=== PATIENT | female | born 1945 | race Caucasian/White ===

== ENCOUNTER 2025-03-19 08:23 | Outpatient (AMB) | payer MEDICARE, SELFPAY ==
--- NOTE | 2025-03-19 08:24 | MHC.OFFVIS ---
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 Ultrasound done on 02/25/2025 showed an endometrial stripe measuring 12 mm no other abnormalities No history of vaginal bleeding Last Pap smear was many years ago negative no history of abnormal Pap smears [facility] Medical History Lymphadenoma Melanoma Surgical History History of appendectomy Social History Household Members: Children Housing: House Alcohol intake: current Alcohol intake frequency: holidays/special occasions only Patient Tobacco Use Status: Current everyday Tobacco user Patient : No Current occupational status: retired Female Reproductive History Menstrual Total pregnancies: 2 Full term: 1 Date of Mammogram: 06/10/24 Review of Systems Const All systems reviewed & are unremarkable except as noted in HPI and below Physical Exam Vital Signs: BMI result Body Mass Index 26.8 General: Yes no CVA tenderness External Female Exam: normal external appearance and normal appearance of the urethra Speculum Exam - Vagina: normal appearance of the vagina, normal palpation, no lesions and no masses Speculum Exam - Cervix: normal appearance of the cervix, normal palpation, no lesions, no masses and nontender Bimanual exam- vagina & uterus: normal bimanual exam, normal palpation, uterine size normal, normal palpation, uterine shape normal, No Cervical tenderness present and non-tender Bimanual Exam- Adnexa, other: normal adnexae Back/Spine/Pelvis Back: no CVA tenderness Office Procedures Endometrial Biopsy Details: The patient was counseled regarding the indication and benefits of endometrial sampling to rule out endometrial pathology including not limited to endometrial hyperplasia or endometrial cancer and others; The alternatives (Either do nothing vs. hysteroscopy D&C) & the risks were discussed with the patient including but not limited: pain, uterine perforation, bleeding, infection, possible injury to bladder, bowel, ureter, possible need for blood transfusion with all its possible risks. The patient verbalized understanding all questions answered and signed consent. The patient was placed into the dorsal lithotomy position; a speculum was inserted in the vagina. Using aseptic technique for the procedure, the cervix was cleansed with Betadine. The anterior lip of the cervix was grasped with a single tooth tenaculum. The uterus was sounded to 7 cm with a 4 mm Pipelle was used. The patient not tolerate the procedure well therefore the procedure was aborted. Minimal Tissues samples were obtained and placed in formalin, in a patient labeled container and sent to the pathology department. At the end of the procedure, there was minimal bleeding noted The patient was discharged in good condition with the following instructions: Nothing in the vagina until the bleeding stops. No sex until the bleeding stops, to call if any of the following occurs: fever (>100.4), flu-like symptoms, abdominal pain, heavy bleeding, four smelling vaginal discharge. The patient was instructed to schedule a Follow up appointment in 2 weeks to discuss pathology results of the biopsy and treatment options. This note was generated with a voice recognition program. Some errors may have been overlooked during the review of this note. Sometimes these errors may affect the content or meaning of a given sentence. 45547-Gsljfjspken Biopsy Assessment & Plan Assessment & Plan (1) Endometrial thickening on ultrasound: Code(s): R93.89 - Abnormal findings on diagnostic imaging of other specified body structures Category: Medical Plan: Discussed with the patient endometrial thickness above 4 mm in menopause , the differential diagnosis of a thickened endometrium includes but not limited to endometrial polyp, hyperplasia or carcinoma. Explained to the patient that endometrial each thickness is less predictive of endometrial neoplasia in asymptomatic patients, i.e. those without postmenopausal uterine bleeding. The sensitivity and specificity for detecting endometrial carcinoma at an endometrial thickness of >= 5mm was 83 and 72 percent, respectively; this is lower than in patients with bleeding. Studies have shown that postmenopausal patients without uterine bleeding who had an endometrial thickness >11 mm had an endometrial carcinoma risk of 6.7 percent; this risk is similar to postmenopausal patients with bleeding and an endometrial thickness >5 mm. Recommended endometrial sampling to rule endometrial pathology via either office endometrial biopsy or diagnostic hysteroscopy/D&C with possible polypectomy/myomectomy. All pros and cons, risks and benefits of each approach were discussed with the patient, the patient decided to proceed with endometrial biopsy. EMB done, see procedure. All questions answered, the patient verbalized Orders: Orders AMB Endometrial Biopsy Today R93.89 - Abnormal findings on diagnostic imaging of other specified body structures Coding Level of Care Code New Pt Level 3 (22386) Procedure Only Diagnoses Endometrial thickening on ultrasound R93.89 CPT Codes Endometrial Biopsy - CPT: 66839-Oxmobtomvmt Biopsy ([id number])
[2025-03-19 08:35] VITALS: BMI 26.8
== END 2025-03-19 09:13 | disposition home or self-care (01) ==
LOC: HO.HWS 08:23
PROVIDERS: PCP Nurse Practitioner Primary Care; Visit Provider Obstetrics & Gynecology
DX: R93.89 Abnormal findings on diagnostic imaging of other specified body structures (principal)
CPT/HCPCS: 58100; 99203

== ENCOUNTER 2025-03-19 08:23 | Outpatient (REF) | payer MEDICARE, SELFPAY ==
--- OUTSIDE RECORDS SUMMARY | 2025-03-19 11:03 | XMS_ITS ---
Author Name [facility] Organization Unknown Care Team Organization Name Specialty Phone Email Start Date End [facility] 03/18/2025
--- OUTSIDE RECORDS SUMMARY | 2025-03-19 11:03 | XMS_ITS | Encounter Summary ---
Author Organization [facility] Address [address] [place] [address] Care Team Providers Care Director Staffing Name Role Phone Kirstin Mcgarry NP Primary Care Provider [phone] Reason for Visit * Reason Onset Date Comments results 03/11/2025 Encounter Details Date Type Department Care Team (Late st Contact Info) Description 03/11/2025 Telephone Internal Medicine - [place] [address] [facility] [place] [phone] Kirstin Mcgarry NP [address] [place] [address] results Social History Tobacco Use Types Packs/Day Years Used Date Smoking Tobacco: Every Day Cigarettes Smokeless Tobacco: Never Alcohol Use Standard Drinks/Week Comments Yes 2 (1 standard drink = 0.6 oz pur e alcohol) Comments No Sex and Gender Information Value Date Recorded Sex Assigned at Not on file Legal Sex Female 12:42 AM EST Gender Identity Not on file Sexual Orientation Not on file documented as of this encounter Progress Notes * Ember Waldron MA - 03/11/2025 4:58 PM EDT Pt was called and given results of tests and told she is being referred to GI for further evaluation. * Tonie Barkley - 03/11/2025 4:35 PM EDT Patient returning call for MRI results. Patient is home now., Please call back at: [phone] documented in this encounter Plan of Treatment Upcoming Encounters Date Type Department Care Team (Late st Contact Info) Description 05/13/2025 8:45 AM EDT Office Visit Internal Medicine - [facility] [address] [place] [address] Kirstin Mcgarry NP [address] [place] [address] 06/16/2025 9:00 AM EST Consult Gastroenterology - [place] [address] [place] [id number] Ramy Friend MD [address] [facility] [address] [place] [address] documented as of this encounter Visit Diagnoses Not on filedocumented in this encounter Additional Health Concerns Assessment Noted Time PHQ-9 Depression Total Score: 0 11/12/19 25 8:55 AM EDT A fall risk assessment has been complete d for the patient 11/11/2024 8:55 AM EDT documented as of this encounter Care Teams Director Staffing Relationship Specialty Start Date End Date Kirstin Mcgarry NP [address] [place] [address] PCP - General 07/27/22 documented as of this encounter
== END 2025-03-19 08:24 | disposition home or self-care (01) ==
LOC: HO.LNP 08:23
PROVIDERS: PCP Nurse Practitioner Primary Care; Visit Provider Obstetrics & Gynecology
DX: R93.89 Abnormal findings on diagnostic imaging of other specified body structures (principal)
CPT/HCPCS: 58100; 88305; 99202

== ENCOUNTER 2025-03-26 10:12 | Outpatient (AMB) | payer MEDICARE, SELFPAY ==
--- NOTE | 2025-03-26 10:38 | MHC.OFFVIS ---
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 The patient has no complaints, no vaginal bleeding, no feverishness chills or abdominal pain. The endometrial biopsy pathology report showed the following: Endometrium, biopsy: Abundant mucin and fragments of benign endocervical glands and squamous mucosa; no endometrial tissue seen (see comment). COMMENT: The specimen is inadequate for evaluation of the endometrium [facility] Medical History Lymphadenoma Melanoma Surgical History History of appendectomy Social History Household Members: Children Housing: House Alcohol intake: current Alcohol intake frequency: holidays/special occasions only Patient Tobacco Use Status: Current everyday Tobacco user Current occupational status: retired Female Reproductive History Menstrual Date of last menstrual period: 05/27/20 Total pregnancies: 2 Full term: 2 Review of Systems Const All systems reviewed & are unremarkable except as noted in HPI and below Reports as per HPI and Reports no additional complaints Card Reports as per HPI and Reports no additional complaints Resp Reports as per HPI and Reports no additional complaints GI Reports no additional complaints Reports no additional complaints Physical Exam Const General: cooperative, healthy appearing and comfortable Resp Effort & Inspection: normal respiratory effort Auscultation: clear to auscultation bilaterally Percussion: percussion normal Cardio Palpation: normal PMI Rate: regular rate Rhythm: regular rhythm Heart sounds: no murmurs and no rubs Peripheral pulses: Peripheral pulses 2+ throughout GI Inspection: Yes normal to inspection Palpation (GI): Soft to palpation, nontender, no guarding, not rigid and No hepatosplenomegaly present Percussion: Yes normal to percussion Auscultation: normal bowel sounds Rectal Exam - Female: deferred Assessment & Plan Assessment & Plan (1) Endometrial thickening on ultrasound: Code(s): R93.89 - Abnormal findings on diagnostic imaging of other specified body structures Category: Medical Plan: Discussed with the patient the results of the endometrial biopsy pathology, no endometrial tissues. Recommended to the patient that the next step is an endometrial sampling via hysteroscopy D&C possible polypectomy versus endometrial biopsy to r/o endometrial pathology including hyperplasia or cancer. All the pros and cons risks and benefits of each approach were discussed with the patient, endometrial biopsy being less invasive, office procedure with less sensitivity and inability diagnose a polyp and removal versus hysteroscopy done under anesthesia more invasive more sensitive to endometrial cancer and possibility of diagnosing and endometrial polyp with the possibility of polypectomy. All questions were answered pt verbalized understanding and decided to proceed with hysteroscopy D&C possible polypectomy/myomectomy. Discussed with the patient the procedure , all benefits and risks including but not limited to inability to complete the procedure , insufficient endometrial tissue for a complete evaluation of the endometrial cavity , bleeding, infection, possible need for blood transfusion with all its risk ( HIV,syphilis, Hepatitis, anaphylaxis shock, others..), injury to bladder, rectum, possible need for laparoscopy/laparotomy or hysterectomy. The patient verbalized understanding and signed the consent. Instructions given the patient to stay NPO after midnight the day prior to the procedure and to take only the specific medication (s) discussed the morning of the surgical procedure and to schedule a 2 week postoperative appointment Coding Level of Care Code Est Pt Level 3 (83444) Diagnoses Endometrial thickening on ultrasound R93.89
--- OUTSIDE RECORDS SUMMARY | 2025-03-26 11:29 | XMS_ITS | Clinical Summary ---
Author Organization [facility] Address [address] [place] [address] Phone Care Team Providers Care Finish Machine Tender Name Role Phone Kirstin Mcgarry NP Primary Care Provider [phone] Allergies No known active allergies Medications cholecalciferol (VITAMIN D-3) 50 mcg (2,000 unit) tablet Take 1 Tablet by mouth daily. Active aspirin 81 mg EC tablet Take 1 tablet (81 mg total) by mouth 1 (one) time each day. Active risedronate (ACTONEL) 35 mg tablet TAKE ONE TABLET BY MOUTH EVERY 7 DAYS DIRECTED 12 tablet 1 11/21/2024 Active losartan (COZAAR) 25 mg tablet TAKE ONE TABLET BY MOUTH EVERY DAY 90 tablet 1 12/23/2024 Active rosuvastatin (CRESTOR) 10 mg tablet TAKE ONE TABLET BY MOUTH EVERY DAY 90 tablet 1 02/12/2025 Active Active Problems Problem Noted Date Diagnosed Date Metastatic melanoma ([facility]/HCC V24, [facility]/HCC V28) 0 11/11/2024 Tobacco use disorder 02/06/2024 Assessment & Plan (11/11/2024 10:18 AM EDT): Tobacco use Patient is aware of the effects of tobacco and has been counseled in regards to tobacco cessation however patient is unwilling to stop smoking at this time -patient was counseled for 3-10 minutes on smoking cessation and is not interested in quitting at this time. Mixed hyperlipidemia 10/30/2022 Assessment & Plan (11/11/2024 10:18 AM EDT): HLD: controlled on statin. Continue current dose. Reviewed SE associated with statin use. Low cholesterol diet advised as well as exercise and optimal weight control. Update lipid panel today. Primary hypertension 10/30/2022 Assessment & Plan (11/11/2024 10:18 AM EDT): HTN: controlled. Continue current meds. Reviewed lifestyle mods to help manage HTN Including low sodium diet and exercise and optimal weight control. Check BMP today. Age-related osteoporosis wit hout current pathological fracture 10/30/2022 Assessment & Plan (11/11/2024 10:18 AM EDT): OP: Is on risedronate for treatment. Bone density not yet due. No reported adverse effects. Encounters Date Type Department Care Team Description 03/11/2025 Telephone Internal Medicine - [address] [phone] Kirstin Mcgarry NP 02/25/2025 12:23 PM EDT - 02/25/2025 11:59 PM EDT Hospital Encounter Radiology Department - [address] [phone] Thickened endometrium; Hydronephrosis with ureteropelvic junction (UPJ) obstruction Discharge Disposition: Home or Self Care 02/25/2025 Telephone Internal Medicine - [address] [phone] Kirstin Mcgarry NP 02/18/2025 Telephone Internal Medicine - [address] [phone] Kirstin Mcgarry NP from Last 3 Months Immunizations Name Administration Dates Next Due Influenza Quadravalent, MDCK , 0.5ml, preservative free (Flucelvax) 6mo and older 05/01/2023 Influenza trivalent, 0.5mL (Fluad) 65yo and olde r 05/13/2024 Pneumococcal conjugate 20 va lent (Prevnar 20, PCV 20) 2mo and older 10/30/2022 Surgical History Surgery Date Site/Laterality Comments APPENDECTOMY 2006 PROCEDURE: HISTORICAL APPENDECTOMY OTHER SURGICAL HISTORY 1979 PROCEDURE: [place] SPINE DEVICE IMPLANT SURGERY BREAST BIOPSY US LT 07/30/2013 - 07/29/2014 Left BREAST CYST ASPIRATION 07/30/2020 - 07/29/2021 Right Medical History Medical History Date Comments Osteopenia DX:Osteopenia Mixed hyperlipidemia DX:Mixed hy perlipidemia Essential (primary) hypertension DX:Essential (primary) hypertension Malignant melanoma of skin ( CMS/HCC V24, CMS/HCC V28) DX:Malignant melanoma of ski n (HCC) Family History Medical History Relation Name Comments Other: Other Brother AAA Heart attack Father Hyperlipidemia Father Hypertension Father No Known Problems Mother Diabetes Paternal Grandmother Thyroid disease Sister x2 No Known Problems Son Relation Name Status Comments Brother Father Mother Paternal Grandmother Sister x2 Alive Son Alive Social History Tobacco Use Types Packs/Day Years [...] on file Sexual Orientation Not on file Obstetrics History Para Term AB IAB SAB Ectopic Multiple Livin g Live Births 1 Last Filed Vital Signs Vital Sign Reading Time Taken Comments Blood Pressure 128/78 11/11/2024 8:49 AM EDT A Pulse 76 11/11/2024 8:49 AM EDT Temperature - - Respiratory Rate - - Oxygen Saturation - - Inhaled Oxygen Concentration - - Weight 80 kg (176 lb 6.4 oz) 11/11/2024 8:49 AM EDT Height 165.1 cm (5' 5 ) 11/11/2024 8:49 AM EDT Body Mass Index 29.35 11/11/2024 8:49 AM EDT Plan of Treatment Upcoming Encounters Date Type Department Care Team (Late st Contact Info) Description 05/13/2025 8:45 AM EDT [facility] [address] [place] [address] Kirstin Mcgarry, ZAC [address] [place] [address] 07/01/2025 9:00 AM EST Consult Gastroenterology - [place] 175 [facility] 175 [facility] [address] [place] [address] Ramy Friend MD [address] [place] [phone] Health Maintenance Due Date Last Done Comments DTaP,Tdap,and Td Vaccines (1 - Tdap) 1964 Zoster Vaccines (1 of 2) 1964 Social Influencers of Health Screening 07/02/2022 COVID-19 Vaccine (4 - 2023-2 5 season) 2024 06/28/2021, 09/30/2020, 09/09/2020 Influenza Vaccine (#1) 2025 , 05/01/2023 Falls Risk Assessment 11/11/2025 11/11/2024 , 10/31/2023 Hypertension/CHF/CAD Annual BMP Blood Test 11/11/2025 11/11/2024, 05/13/2024, 05/13/2024 Medicare Annual Wellness Visit 11/11/2025 11/11/2024 Cholesterol Screening (Lipid Panel) 11/11/2029 11/11/2024, 05/13/2024, 05/13/2024 Osteoporosis Screening (Bone Density Screening) 07/10/2032 07/10/2022, 07/01/2020, 04/05/2018 Pneumococcal Vaccine: 50+ Years Completed 10/30/2022 RSV Immunization Adult Patients Completed 2024 Depression Screening Completed 11/11/2024, 10/31/2023 HIB Vaccines Aged Out No longer eligi ble based on patient's age to complete this topic HPV Vaccines Aged Out No longer eligi ble based on patient's age to complete this topic Hepatitis A Vaccines Aged Out No long er eligible based on patient's age to complete this topic Hepatitis B Vaccines Aged Out No long er eligible based on patient's age to complete this topic Hepatitis C Screening Discontinued IPV Vaccines Aged Out No longer eligi ble based on patient's age to complete this topic Lung Cancer Screening (Low Dose CT) Discontinued MMR Vaccines Aged Out No longer eligi ble based on patient's age to complete this topic Meningococcal ACWY Vaccine Aged Out N o longer eligible based on patient's age to complete this topic Meningococcal B Vaccine Aged Out No l onger eligible based on patient's age to complete this topic RSV Immunization Patients Under 20 months Aged Out No longer eligible based on patient's age to complete this topic Varicella Vaccines Aged Out No longer eligible based on patient's age to complete this topic Procedures Procedure Name Priority Date/Time Associated Diagnosis Comments EXTERNAL XRAY REPORT 03/11/2025 US PELVIS NON OB COMPLETE Routine 02/25/2025 12:56 PM EDT Thickened endometrium Hydronephrosis with ureteropelvic junction (UPJ) obstruction CT ABDOMEN PELVIS WO AND W CONTRAST Routine 02/12/2025 1:43 PM EDT COMPREHENSIVE METABOLIC PANEL Routine 11/11/2024 9:55 AM EDT Screening for metabolic disorder LIPID PANEL WITH REFLEX TO DIRECT LDL Routine 11/11/2024 9:55 AM EDT Screening for metabolic disorder Encounter for lipid screening for cardiovascular disease DEPRESSION SCREENING Routine 10/31/2023 FALLS RISK ASSESSMENT Routine 10/31/2023 [facility] DEXA AXIAL SKELETON Routine 07/10/2022 9:33 AM EST Age-related osteoporosis without current pathological fracture from Last 3 Months or Most Recently Relevant to Health Maintenance Results * External Xray Report (03/11/2025) Anatomical Region Laterality Modality Radiographic Nimco ging us Provider [facility] IMG XR PROCEDURES Final Result * US Pelvis Non OB Complete (02/25/2025 12:56 PM EDT) Anatomical Region Laterality Modality Body, Pelvis Ultrasound 02/25/2025 1:02 PM EDT Impressions 02/25/2025 1:41 PM EDT Abnormally thickened endometrium, measuring 1.2 cm in thickness. Neither ovary is visualized. -------- FINAL REPORT -------- Dictated By: Marcella Strange Dictated Date: 02/25/2025 13:02 ET Assigned Physician: Marcella Strange Reviewed and Electronically Signed By: Marcella Strange Signed Date: 02/25/2025 13:41 ET Workstation ID: [id number] Transcribed By: Self Edit Transcribed Date: 02/25/2025 13:02 ET Narrative 02/25/2025 1:41 PM EDT US PELVIS NON OB COMPLETE PELVIC ULTRASOUND History: Endometrial thickening. Hydronephrosis. Procedure: Real-time and color Doppler pelvic ultrasound. The patient declined the transvaginal exam. Comparison: None. FINDINGS: The uterus measures 6.72 x 2.71 x 2.4 cm for a volume of 32.4 cc. Endometrial stripe measures 1.2 cm. No evidence of uterine or adnexal mass seen. Transvaginal sonographic examination was performed for better evaluation of the adnexa. Neither ovary is visualized. No free fluid was demonstrated. Procedure Note Marcella Strange MD - 02/25/2025 US PELVIS NON OB COMPLETE PELVIC ULTRASOUND History: Endometrial thickening. Hydronephrosis. Procedure: Real-time and color Doppler pelvic ultrasound. The patientdeclined the transvaginal exam. Comparison: None. FINDINGS: The uterus measures 6.72 x 2.71 x 2.4 cm for a volume of 32.4cc. Endometrial stripe measures 1.2 cm. No evidence of uterine or adnexal mass seen. Transvaginal sonographic examination was performed for better evaluationof the adnexa. Neither ovary is visualized. No free fluid was demonstrated. IMPRESSION: Abnormally thickened endometrium, measuring 1.2 cm in thickness. Neither ovary is visualized. -------- FINAL REPORT -------- Dictated By: Marcella Strange Dictated Date: 02/25/2025 13:02 ET Assigned Physician: Marcella Strange Reviewed and Electronically Signed By: Marcella Strange Signed Date: 02/25/2025 13:41 ET Workstation ID: [id number] Transcribed By: Self Edit Transcribed Date: 02/25/2025 13:02 ET us Kirstin Mcgarry NP IMG US PROCEDURES Final Result * CT Abdomen Pelvis wo and w Contrast (02/12/2025 1:43 PM EDT) Anatomical Region Laterality Modality Body Computed Tomogra phy Marisabel Amezcua DISH ROOM WORKER IMG CT PROCEDURES Final Resu lt * Lipid panel with reflex to direct LDL (11/11/2024 9:55 AM EDT) Cholesterol 167 0 - 200 mg/dL LAB CHEMISTRY METHOD 11/11/2024 1:[address] [facility] Triglycerides 107 0 - 150 mg/dL LAB CHEMISTRY METHOD 11/11/2024 1:[address] [facility] HDL 57 >=40 mg/dL LAB CHEMISTRY METHOD 11/11/2024 1:[address] [facility] LDL Calculated 89 0 - 100 mg/dL LAB CHEMISTRY METHOD 11/11/2024 1:[address] [facility] VLDL Cholesterol Cameron 21.4 mg/dL LAB CHEMISTRY METHOD 11/11/2024 1:[address] [facility] Non HDL Chol. (LDL+VLDL) 110 <145 mg/dL LAB CHEMISTRY METHOD 11/11/2024 1:[address] [facility] Chol/HDL Ratio 2.9 0.0 - 4.4 LAB CHEMISTRY METHOD 11/11/2024 1:[address] [facility] Blood Venous blood specimen / Unknown Venipuncture / Unknown 11/11/2024 9:55 AM EDT 11/11/2024 9:55 AM EDT Kirstin Mcgarry NP LAB BLOOD ORDERABLES Final Resu lt [facility] [address] [place] [address], [place] [phone] * (ABNORMAL) Comprehensive metabolic panel (11/11/2024 9:55 AM EDT) Sodium 139 133 - 145 mmol/L LAB CHEMISTRY METHOD 11/11/2024 1:19 PM [facility] Potassium 4.2 3.5 - 5.5 mmol/L LAB CHEMISTRY METHOD 11/11/2024 1:19 PM [facility] Chloride 110 96 - 110 mmol/L LAB CHEMISTRY METHOD 11/11/2024 1:19 PM [facility] CO2 27 21 - 32 mmol/L LAB CHEMISTRY METHOD 11/11/2024 1:19 PM [facility] Anion Gap 2(L) 3 - 11 LAB CHEMISTRY METHOD 11/11/2024 1:19 PM [facility] Glucose 88 70 - 100 mg/dL LAB CHEMISTRY METHOD 11/11/2024 1:19 PM [facility] BUN 18 5 - 25 mg/dL LAB CHEMISTRY METHOD 11/11/2024 1:19 PM [facility] Creatinine 0.64 0.50 - 1.10 mg/dL LAB CHEMISTRY METHOD 11/11/2024 1:19 PM [facility] eGFR 90 >=60 mL/min/1. 73m2 LAB CHEMISTRY METHOD 11/11/2024 1:19 PM [facility] Comment:Calculation based on the Chronic Kidney Disease Epidemiology Collaboration (CKD-EPI) equation refit without adjustment for race. BUN/Creatinine Ratio 28.1 LAB CHEMISTRY METHOD 11/11/2024 1:19 PM [facility] Calcium 9.1 8.5 - 10.5 mg/dL LAB CHEMISTRY METHOD 11/11/2024 1:19 PM [facility] AST (SGOT) 19 10 - 42 unit/L LAB CHEMISTRY METHOD 11/11/2024 1:19 PM [facility] ALT (SGPT) 20 10 - 60 unit/L LAB CHEMISTRY METHOD 11/11/2024 1:19 PM [facility] Alkaline Phosphatase 92 42 - 121 unit/L LAB CHEMISTRY METHOD 11/11/2024 1:[address] [facility] Total Protein 6.7 6.0 - 8.0 g/dL LAB CHEMISTRY METHOD 11/11/2024 1:[address] [facility] Albumin 3.5 3.2 - 5.0 g/dL LAB CHEMISTRY METHOD 11/11/2024 1:[address] [facility] Total Bilirubin 0.6 0.0 - 1.4 mg/dL LAB CHEMISTRY METHOD 11/11/2024 1:[address] [facility] Blood Venous blood specimen / Unknown Venipuncture / Unknown 11/11/2024 9:55 AM EDT 11/11/2024 9:55 AM EDT Kirstin Mcgarry DISH ROOM WORKER LAB BLOOD ORDERABLES Final Resu lt [facility] [address] [place] [address], * Falls Risk Assessment (10/31/2023) Falls Risk Assessment Abstracted Historical Provider MD HEALTH MAINTENANCE Final Result * Depression Screening (10/31/2023) Depression Screening Abstracted Historical Provider HEALTH MAINTENANCE Final Result * [facility] DEXA AXIAL SKELETON (07/10/2022 9:33 AM EST) Anatomical Region Laterality Modality Mammography 07/06/2022 10:3 4 AM EST Narrative 07/10/2022 9:33 AM EST [facility] Diagnostic Imaging Department [address], [place] [id number] Patient: DORA WILSON /Age/Sex: 1945 - 77 - F Unit#: [id number] Location/Status: [facility]/REG I Mnemonic/[facility] Ordering Physician: MOE REZA MD [facility] Dexa Axial Skeleton - 07/06/221242 HISTORY: The patient is a 77-year-old postmenopausal female smoker with clinical concern for metabolic bone disease. FINDINGS: Dual energy x-ray absorptiometry of the lumbar spine and femurs is performed. The mean bone mineral density at L2-3 is 0.916 gm/cm2 which is 76% of that of young normals and 89% of that of age matched controls. This yields a T- score of -2.4 and a Z-score of -0.9 which is diagnostic of osteopenia. The mean bone mineral density of the femurs bilaterally is 0.779 gm/cm2 which is 77% of that of young normals and 97% of that of age matched controls. This yields a T-score of -1.8 and a Z-score of -0.2 which is diagnostic of osteopenia. However, the T-score of the right femoral neck is -2.6 and that of the left femoral neck is -2.5 which is diagnostic of osteoporosis. IMPRESSION: 1. Osteoporosis. There has been a decrease of 0.3% in bone mineral density in the lumbar spine since the prior examination of 07/01/2020. There has been an increase of 5.3% in bone mineral density in the right femur and an increase of 3.0% in bone mineral density in the left femur. 2. FRAX analysis yields a 10-year probability of major osteoporotic fracture of 20.3% and a 10-year probability of hip fracture of 9.9%. Code 97787 Dictating Physician: AIYANA BEASLEY MD Electronically Signed by: AIYANA BEASLEY MD Dic Date/Time: 07/10/22931 Sign date/Time: 07/10/22932 Procedure Note Aiyana Beasley MD - 08/31/2023 [facility] Diagnostic Imaging Department [address] [place] [address] Patient: DORA WILSON Kamla PichardoB./Age/Sex: 1945 - 77 - F Unit#: [id number] Location/Status[facility] Mnemonic/Ordering Site: [facility] Ordering Physician: MOE REZA MD [facility] Dexa Axial Skeleton - 07/06/22 - 1243 HISTORY: The patient is a 77-year-old postmenopausal female smoker with clinical concern for metabolic bone disease. FINDINGS: Dual energy x-ray absorptiometry of the lumbar spine and femursis performed. The mean bone mineral density at L2-3 is 0.916 gm/cm2 which is76% of that of young normals and 89% of that of age matched controls. This yieldsa T- score of -2.4 and a Z-score of -0.9 which is diagnostic of osteopenia. The mean bone mineral density of the femurs bilaterally is 0.779 gm/iy3znpin is 77% of that of young normals and 97% of that of age matched controls.This yields a T-score of -1.8 and a Z-score of -0.2 which is diagnostic of osteopenia. However, the T-score of the right femoral neck is -2.6 andthat of the left femoral neck is -2.5 which is diagnostic of osteoporosis. IMPRESSION: 1. Osteoporosis. There has been a decrease of 0.3% in bone mineraldensity in the lumbar spine since the prior examination of 07/01/2020. There has beenan increase of 5.3% in bone mineral density in the right femur and anincrease of 3.0% in bone mineral density in the left femur. 2. FRAX analysis yields a 10-year probability of major osteoporoticfracture of 20.3% and a 10-year probability of hip fracture of 9.9%. Code 73244 Dictating Physician: AIYANA BEASLEY MD Electronically Signed by: AIYANA BEASLEY MD Dic Date/Time: 07/10/22931 Sign date/Time: 07/10/22932 Moe Reza MD IMG BI PROCEDURES Final Re sult from Last 3 Months or Most Recently Relevant to Health Maintenance Insurance MEDICARE [facility] Care Teams Finish Machine Tender Relationship Specialty Start Date End Date Kirstin Mcgarry NP [address] [facility] [place] [address] PCP - General 07/27/22
--- OUTSIDE RECORDS SUMMARY | 2025-03-26 11:29 | XMS_ITS | Encounter Summary ---
Author Organization [facility] Address [address] [place] [address] Care Team Providers Care Expenditure Requisition Clerk Name Role Phone Kirstin Mcgarry NP Primary Care Provider [phone] Reason for Visit * Reason Onset Date Comments results 03/11/2025 Encounter Details Date Type Department Care Team (Late st Contact Info) Description 03/11/2025 Telephone Internal [facility] [place] [facility] [place] [phone] Kirstin Mcgarry NP [address] [place] [address] Social History Tobacco Use Types Packs/Day Years [...] is home now., Please call back at: [phone] documented in this encounter Plan of Treatment Upcoming Encounters Date Type Department Care Team (Late st Contact Info) Description 05/13/2025 8:45 AM EDT Office Visit Internal Medicine - [facility] [address] [place] [address] Kirstin Mcgarry NP [address] [place] [address] 07/01/2025 9:00 AM EST Consult Gastroenterology - [place] [address] [place] [phone] Ramy Friend MD [address] [place] [phone] documented as of this encounter Visit Diagnoses Not on filedocumented in this encounter Additional Health Concerns Assessment Noted Time PHQ-9 Depression Total Score: 0 11/12/19 8:55 AM EDT A fall risk assessment has been complete d for the patient 11/11/2024 8:55 AM EDT documented as of this encounter Care Teams Expenditure Requisition Clerk Relationship Specialty Start Date End Date Kirstin Mcgarry NP [address] [place] [address] PCP - General 07/27/22 documented as of this encounter
--- OUTSIDE RECORDS SUMMARY | 2025-03-26 11:29 | XMS_ITS | Encounter Summary ---
Author Organization [facility] Address [address] [place] [address] Care Team Providers Care Auto Phone Installer Name Role Phone Kirstin Mcgarry NP Primary Care Provider Reason for Visit * Reason Onset Date Comments Results 02/25/2025 Encounter Details Date Type Department Care Team (Late st Contact Info) Description 02/25/2025 Telephone Internal Medicine - [place] [facility] [place] [phone] Kirstin Mcgarry NP [address] [place] [address] Social History Tobacco Use Types Packs/Day Years [...] Progress Notes * Ember Waldron MA - 02/25/2025 4:25 PM EDT Returned pts call and message given. * Rody Bennett MA - 02/25/2025 4:00 PM EDT [facility]. * Marguerite Reyes - 02/25/2025 3:58 PM EDT Pt returned JOSE's call regarding Imaging from 02/18/25 US documented in this encounter Plan of Treatment Upcoming Encounters Date Type Department Care Team (Late st Contact Info) Description 05/13/2025 8:45 AM EDT Office Visit Internal Medicine - [facility] [address] [place] [address] Kirstin Mcgarry NP [address] [place] [address] 07/01/2025 9:00 AM EST Consult Gastroenterology - [place] [address] [place] [phone] Ramy Friend MD [address] [place] [phone] documented as of this encounter Visit Diagnoses Not on filedocumented in this encounter Additional Health Concerns Assessment Noted Time PHQ-9 Depression Total Score: 0 11/12/19 8:55 AM EDT A fall risk assessment has been complete d for the patient 11/11/2024 8:55 AM EDT documented as of this encounter Care Teams Auto Phone Installer Relationship Specialty Start Date End Date Kirstin Mcgarry NP [address] [place] [address] PCP - General 07/27/22 documented as of this encounter
== END 2025-03-26 11:04 | disposition home or self-care (01) ==
LOC: HO.HWS 10:12
PROVIDERS: PCP Nurse Practitioner Primary Care; Visit Provider Obstetrics & Gynecology
DX: R93.89 Abnormal findings on diagnostic imaging of other specified body structures (principal)
CPT/HCPCS: 99213

== ENCOUNTER → 2025-03-26 10:12 | Outpatient (BNVA) | payer MEDICARE, SELFPAY | PROVIDERS: PCP Nurse Practitioner Primary Care; Visit Provider Obstetrics & Gynecology | DX: R93.89 Abnormal findings on diagnostic imaging of other specified body structures (principal) | CPT/HCPCS: 99212 ==

== ENCOUNTER 2025-04-01 11:52 | Day surgery (SDC) | payer MEDICARE, SELFPAY ==
--- NOTE | 2025-03-31 09:01 | HO.ANESPROP2 ---
Documented by User: Nicole Fowler NP 03/31/25 09:02 HPI - Anesthesia Eval Consult details Narrative: 79yo F for D&C Hysteroscopy,possible myomectomy,possible polypectomy PMFSH Active Problems Active Problems: All Active Problems Endometrial thickening on ultrasound (Acute) Past Medical History Medical History (Updated 04/01/25 @ 12:04 by Mendy Pugh RN) Bilateral cataracts Smoker Osteoporosis Elevated cholesterol HTN (hypertension) Lymphadenoma Melanoma Surgical History Surgical History (Updated 04/01/25 @ 12:05 by Mendy Pugh RN) H/O colonoscopy with polypectomy H/O lumbar discectomy Hx of breast biopsy History of back surgery History of appendectomy Social History Social History Household Members: Children Housing: House Alcohol intake: current Alcohol intake frequency: holidays/special occasions only Patient Tobacco Use Status: Current everyday Tobacco user Tobacco use type: Cigarette Cigarettes Per Day: 15 Use of substances other than those prescribed or required for medical reasons: No Are you DNR?: No Advance Directives: No Advance Directives Information Provided: Yes Patient : No : No Poor oral hygiene: No Current occupational status: retired [employer] Allergies Allergy/AdvReac Type Severity Reaction Status Date / Time No Known Allergies Allergy Verified 03/26/25 10:39 Home Medications ?Medication ?Instructions ?Recorded ?Confirmed ?Last Taken ?Type aspirin 81 mg chewable tablet 81 mg PO DAILY 03/19/25 04/01/25 03/30/25 History cholecalciferol (vitamin D3) 50 50 mcg PO DAILY 03/19/25 04/01/25 Unknown History mcg (2,000 unit) capsule losartan 25 mg tablet 25 mg PO DAILY 03/19/25 04/01/25 Unknown History risedronate 35 mg tablet 35 mg PO QWEEK 03/19/25 04/01/25 Unknown History rosuvastatin 10 mg tablet 10 mg PO DAILY 03/19/25 04/01/25 Unknown History Assessment and Plan Assessment Anesthesia Assessment: Chart Reviewed Documented by User: Alonso Monte MD 04/01/25 13:02 [facility] Past Medical History Medical History (Updated 04/01/25 @ 12:04 by Mendy Pugh, LILA) Bilateral cataracts Smoker Osteoporosis Elevated cholesterol HTN (hypertension) Lymphadenoma Melanoma Functional capacity: independent ambulation Family History Family history of problems with anesthesia: No Surgical History Surgical History (Updated 04/01/25 @ 12:05 by Mendy Pugh RN) H/O colonoscopy with polypectomy H/O lumbar discectomy Hx of breast biopsy History of back surgery History of appendectomy History of Problems with Anesthesia: No Social History Social History Household Members: Children Housing: House Alcohol intake: current Alcohol intake frequency: holidays/special occasions only Patient Tobacco Use Status: Current everyday Tobacco user Tobacco use type: Cigarette Cigarettes Per Day: 15 Use of substances other than those prescribed or required for medical reasons: No Are you DNR?: No Advance Directives: No Advance Directives Information Provided: Yes Patient : No : No Poor oral hygiene: No Current occupational status: retired [employer] Allergies Allergy/AdvReac Type Severity Reaction Status Date / Time No Known Allergies Allergy Verified 03/26/25 10:39 Home Medications ?Medication ?Instructions ?Recorded ?Confirmed ?Last Taken ?Type aspirin 81 mg chewable tablet 81 mg PO DAILY 03/19/25 04/01/25 03/30/25 History cholecalciferol (vitamin D3) 50 50 mcg PO DAILY 03/19/25 04/01/25 Unknown History mcg (2,000 unit) capsule losartan 25 mg tablet 25 mg PO DAILY 03/19/25 04/01/25 Unknown History risedronate 35 mg tablet 35 mg PO QWEEK 03/19/25 04/01/25 Unknown History rosuvastatin 10 mg tablet 10 mg PO DAILY 03/19/25 04/01/25 Unknown History Exam Exam Date and Time: 04/01/2025 Airway TM Dist: >3cm Neck ROM: Full Denture: Upper Partial: Upper Heart: rrr Lungs: cta Other: normal Assessment and Plan Assessment Anesthesia Assessment: Anesthesia Plan Discussed and Smoking Cess. Discussed Final Anesthetic Review Family History of Problems with Anesthesia: No History of Problems with Anesthesia: No NPO: Yes ASA Class: II Final Preanesthetic Review: No Changes in Pt Med Stat, Meds/Allgs Chart Reviewed, Consent Obtained/Reviewed and Anes Risks/Benef Reviewed Patient Risk: Low Procedure Risk: Low Anesthetic Plan Anesthetic Plan: GA Disposition: Standard PACU
[2025-04-01 12:12] VITALS: BMI 28.2
[2025-04-01 12:25] VITALS: BP 121/51; PULSE 68; RESP 16; TEMP 36.4; O2SAT 94
[2025-04-01] MEDS: Lactated Ringers 1,000 ML 100 ML IVCONT (12:34)
--- NOTE | 2025-04-01 13:32 | MHC.SHP ---
Pre-Procedural Eval Section A - 24 Hr Update-Section A only Date of Service: 04/01/25 The patient is an INPATIENT: No Changes since office visit: No Cold of Flu in the past 2 weeks, No New Medical Problems, No Changes in Medication and No Patient answered all questions The patient has been examined within 24 hours of the surgical procedure. The History & Physical has been completed within 30 days and I have reviewed it.: Yes Section B - Complete if H&P > 30 days Chief Complaint: Abnormal findings on diagnostic imaging of other Allergies: Allergies Allergy/AdvReac Type Severity Reaction Status Date / Time No Known Allergies Allergy Verified 03/26/25 10:39 Plan Diagnosis/Plan: Unchanged I have reviewed the history and physical and performed a pertinent physical examination on my patient. No changes have occurred unless specified. Time Spent With Patient Time: Total time managing care of this patient today ____ minutes.
--- NOTE | 2025-04-01 14:16 | P.BOP_ITS ---
Brief Operative Note Date of Service: 04/01/25 Pre-op diagnosis: Thick endometrium by ultrasound Post-op diagnosis: same Procedure: Hysteroscopy D&C Surgeon: Ramy Duckworth MD Anesthesia: GLMA Was an Cnc Milling Machinist used for this Procedure?: No Estimated blood loss (mL): 0 Pathology: other (Endometrial Scrapping) Condition: stable Disposition: PACU
--- NOTE | 2025-04-01 14:16 | W.PM.OPN ---
Operative Note Operative Note Date of Service: 04/01/25 Narrative: Preop Diagnosis: Thick endometrium by ultrasound Operation: Diagnostic Hysteroscopy, Dilataion & Curettage Post Op Diagnosis: Same QBL: Minimal Anesthesia: GLMA Surgeon: Ramy Duckworth MD Client Services Coordinator: None Complication: None Pathology: Endometrial Scrapings Procedure: The patient was put in the dorsal lithotomy position, scrubbed, and draped in the usual manner. A sterile speculum was inserted in the patient's vagina. The anterior lip of the cervix was grasped with a single tooth tenaculum. The cervix was dilated up to 5 mm, then the scope was inserted in the patient's uterus. Inspection revealed Normal endometrial cavity. The Myosure Reach device was used; the scope was removed from the endometrial cavity , sharp curettings was carried on with minimal to moderate amount of tissues retrieved. At the end of the procedure, all instruments were taken out of the patient uterine and vaginal cavity. The single tooth tenaculum was removed and homeostasis was assured using pressure,. The patient tolerated the procedure well and was transferred to the PACU in a stable condition.
[2025-04-01 14:21] VITALS: BP 127/50; PULSE 69; RESP 16; TEMP 36.6; O2SAT 97
[2025-04-01 14:26] VITALS: BP 127/52; PULSE 79; RESP 17; O2SAT 100
[2025-04-01 14:31] VITALS: BP 125/42; PULSE 70; RESP 15; O2SAT 98
[2025-04-01 14:35] VITALS: BP 121/54; PULSE 71; RESP 16; O2SAT 98
[2025-04-01 14:50] VITALS: BP 123/49; PULSE 69; RESP 16; TEMP 36.4; O2SAT 96
== END 2025-04-01 15:23 | disposition home or self-care (01) ==
PROVIDERS: PCP Nurse Practitioner Primary Care; Visit Provider Obstetrics & Gynecology
PROC: 0UDB8ZZ Extraction of Endometrium, Via Natural or Artificial Opening Endoscopic (ICD-10-PCS; CPT 58558; principal; 2025-04-01 13:30)
DX: N84.0 Polyp of corpus uteri (principal); N84.1 Polyp of cervix uteri; I10 Essential (primary) hypertension; E78.00 Pure hypercholesterolemia, unspecified; M81.0 Age-related osteoporosis without current pathological fracture; Z85.820 Personal history of malignant melanoma of skin; Z79.82 Long term (current) use of aspirin; Z79.899 Other long term (current) drug therapy; Z98.890 Other specified postprocedural states; F17.210 Nicotine dependence, cigarettes, uncomplicated
CPT/HCPCS: 58558; 88305; J0131; J1100; J2003; J2405; J2704; J3010

== ENCOUNTER → 2025-04-01 11:52 | Outpatient (BNV) | payer MEDICARE, SELFPAY | PROVIDERS: PCP Nurse Practitioner Primary Care; Visit Provider Obstetrics & Gynecology | DX: R93.89 Abnormal findings on diagnostic imaging of other specified body structures (principal) | CPT/HCPCS: 58558 ==

== ENCOUNTER 2025-04-15 09:40 | Outpatient (AMB) | payer MEDICARE, SELFPAY ==
--- NOTE | 2025-04-15 09:45 | MHC.OFFVIS ---
Vital Signs 04/15/25 09:46 Weight 169 lb 6 oz BP 128/82 Intake Visit Reasons: post op City Auditor: City Auditor Present (zoe) Accompanied by: Self / Same As Patient Allergies No Known Allergies Allergy (Verified 04/15/25 09:47) HPI Comments Details: The patient is presenting post hysteroscopy D&C no complaints minimal vaginal bleeding no feverishness chills or abdominal pain. The pathology showed the following: Endometrium, curettage: Fragment of benign atrophic endometrial polyp with cysts, scant superficial fragments of benign atrophic endometrium, polypoid fragments of endocervical glandular mucosa, and scant benign endocervical glandular and squamous epithelium; no atypia or carcinoma. Comment: Clinical and imaging correlation is necessary [facility] Medical History Bilateral cataracts Smoker Osteoporosis Elevated cholesterol HTN (hypertension) Lymphadenoma Melanoma Surgical History H/O colonoscopy with polypectomy H/O lumbar discectomy Hx of breast biopsy History of back surgery History of appendectomy Family History Father Heart disease Paternal Grandmother Diabetes Social History Household Members: Children Housing: House Alcohol intake: current Alcohol intake frequency: holidays/special occasions only Patient Tobacco Use Status: Current everyday Tobacco user Tobacco use type: Cigarette Cigarettes Per Day: 15 Current occupational status: retired Female Reproductive History Menstrual Total pregnancies: 2 Full term: 1 History of abnormal pap smear: No History of abnormal mammogram: No Review of Systems Const All systems reviewed & are unremarkable except as noted in HPI and below Reports as per HPI and Reports no additional complaints GI Reports no additional complaints Reports no additional complaints Physical Exam Vital Signs: Last Vital Signs BP 128/82 04/15/25 09:46 Assessment & Plan Assessment & Plan (1) Endometrial thickening on ultrasound: Code(s): R93.89 - Abnormal findings on diagnostic imaging of other specified body structures Category: Medical Plan: Discussed with the patient the intraoperative findings, showing normal endometrial cavity, the pathology report showing benign polyp and atrophic endometrium. The sensitivity, specificity, false-positive and false-negative rate of D and C in detecting endometrial pathology including hyperplasia and malignancy were discussed with the patient. Instructions given to patient to call in case of vaginal bleeding will proceed with further endometrial sampling evaluation. All questions answered, the patient verbalized understanding Coding Level of Care Code Est Pt Level 3 (68717) Diagnoses Endometrial thickening on ultrasound R93.89
[2025-04-15 09:46] VITALS: BP 128/82
--- OUTSIDE RECORDS SUMMARY | 2025-04-15 11:27 | XMS_ITS | Encounter Summary ---
Author Organization [facility] Address [address] [place] [address] Care Team Providers Care Compactor Driver Name Role Phone Kirstin Mcgarry NP Primary Care Provider [phone] Reason for Visit * Reason Onset Date Comments results 03/11/2025 Encounter Details Date Type Department Care Team (Late st Contact Info) Description 03/11/2025 Telephone [facility] [address] [facility] [place] [phone] Kirstin Mcgarry NP [address] [place] [address] Social History Tobacco Use Types Packs/Day Years [...] is home now., Please call back at: [phone] documented in this encounter Plan of Treatment Upcoming Encounters Date Type Department Care Team (Late st Contact Info) Description 05/13/2025 8:45 AM EDT Office Visit Internal Medicine - [facility] [address] [place] [address] Kirstin Mcgarry NP [address] [place] [address] 07/01/2025 9:00 AM EST Consult Gastroenterology - [place] [address] [place] [id number] Ramy Friend MD [address] [place] [address] [phone] documented as of this encounter Visit Diagnoses Not on filedocumented in this encounter Additional Health Concerns Assessment Noted Time PHQ-9 Depression Total Score: 0 11/12/19 25 8:55 AM EDT A fall risk assessment has been complete d for the patient 11/11/2024 8:55 AM EDT documented as of this encounter Care Teams Compactor Driver Relationship Specialty Start Date End Date Kirstin Mcgarry NP [address] [place] [address] PCP - General 07/27/22 documented as of this encounter
--- OUTSIDE RECORDS SUMMARY | 2025-04-15 11:27 | XMS_ITS | Clinical Summary ---
Author Organization [facility] Address [address] [place] [address] Phone Care Team Providers Care Technical Writer Name Role Phone Kirstin Mcgarry NP Primary Care Provider [phone] Allergies No known active allergies Medications cholecalciferol [...] Problem Noted Date Diagnosed Date Metastatic melanoma ([facility]/HCC V24, [facility]/HCC V28) 0 11/11/2024 Tobacco use disorder 02/06/2024 [...] Team Description 03/11/2025 Telephone Internal Medicine - [address] [phone] Kirstin Mcgarry NP 02/25/2025 12:23 PM EDT - 02/25/2025 11:59 PM EDT Hospital Encounter Radiology Department - [address] [phone] Thickened endometrium; Hydronephrosis with ureteropelvic junction (UPJ) obstruction Discharge Disposition: Home or Self Care 02/25/2025 Telephone Internal Medicine - [address] [phone] Kirstin Mcgarry NP 02/18/2025 Telephone Internal Medicine - [address] [phone] Kirstin Mcgarry NP from Last 3 Months Immunizations Name Administration Dates Next Due Influenza Quadravalent, MDCK , 0.5ml, preservative free (Flucelvax) 6mo and older 05/01/2023 Influenza trivalent, 0.5mL (Fluad) 65yo and olde r 05/13/2024 Pneumococcal conjugate 20 va lent (Prevnar 20, PCV 20) 2mo and older 10/30/2022 Surgical History Surgery Date Site/Laterality Comments APPENDECTOMY 2006 PROCEDURE: HISTORICAL APPENDECTOMY OTHER SURGICAL HISTORY 1979 PROCEDURE: [place] SPINE DEVICE IMPLANT SURGERY BREAST BIOPSY US [...] AM EDT [facility] [address] [place] [address] Kirstin Mcgarry, ZAC [address] [place] [address] 07/01/2025 9:00 AM EST Consult Gastroenterology - [place] [facility] [address] [facility] [address] [place] [address] Ramy Friend MD [facility] [address] Health Maintenance Due Date Last Done Comments DTaP,Tdap,and Td Vaccines (1 - Tdap) 1964 Zoster Vaccines (1 of 2) 1964 Social Influencers of Health Screening 07/02/2022 COVID-19 Vaccine (4 - 2024-2 6 season) 2025 06/28/2021, 09/30/2020, 09/09/2020 Influenza Vaccine (#1) 2025 [...] Routine 10/31/2023 FALLS RISK ASSESSMENT Routine 10/31/2023 [facility] DEXA AXIAL SKELETON Routine 07/10/2022 9:33 [...] Signed Date: 02/25/2025 13:41 ET Workstation ID: [id number] Transcribed By: Self Edit Transcribed Date: 02/25/2025 [...] Signed Date: 02/25/2025 13:41 ET Workstation ID: [id number] Transcribed By: Self Edit Transcribed Date: 02/25/2025 13:02 ET Kirstin Zeferino BORDEREAU CLERK IMG US PROCEDURES Final Result * CT Abdomen Pelvis wo and w Contrast (02/12/2025 1:43 PM EDT) Anatomical Region Laterality Modality Body Computed Tomogra phy Marisabel Amezcua NP IMG CT PROCEDURES Final Resu lt * Lipid panel with reflex to direct LDL (11/11/2024 9:55 AM EDT) Cholesterol 167 0 - 200 mg/dL LAB CHEMISTRY METHOD 11/11/2024 1:14 PM EDT [facility] Triglycerides 107 0 - 150 mg/dL LAB CHEMISTRY METHOD 11/11/2024 1:14 PM EDT [facility] HDL 57 >=40 mg/dL LAB CHEMISTRY METHOD 11/11/2024 1:14 PM EDT [facility] LDL Calculated 89 0 - 100 mg/dL LAB CHEMISTRY METHOD 11/11/2024 1:14 PM EDT [facility] VLDL Cholesterol Cameron 21.4 mg/dL LAB CHEMISTRY METHOD 11/11/2024 1:14 PM EDT [facility] Non HDL Chol. (LDL+VLDL) 110 <145 mg/dL LAB CHEMISTRY METHOD 11/11/2024 1:14 PM EDT [facility] Chol/HDL Ratio 2.9 0.0 - 4.4 LAB CHEMISTRY METHOD 11/11/2024 1:14 PM EDT [facility] Blood Venous blood specimen / Unknown Venipuncture / Unknown 11/11/2024 9:55 AM EDT 11/11/2024 9:55 AM EDT Kirstin Mcgarry NP LAB BLOOD ORDERABLES Final Resu lt [facility] [address] [place] [address], [place] [phone] * (ABNORMAL) Comprehensive metabolic panel (11/11/2024 9:55 AM EDT) [facility] Signature Sodium 139 133 - 145 mmol/L LAB CHEMISTRY METHOD 11/11/2024 1:19 PM [facility] Potassium 4.2 3.5 - 5.5 mmol/L LAB CHEMISTRY METHOD 11/11/2024 1:19 PM [facility] Chloride 110 96 - 110 mmol/L LAB CHEMISTRY METHOD 11/11/2024 1:19 PM [facility] CO2 27 21 - 32 mmol/L LAB CHEMISTRY METHOD 11/11/2024 1:19 PM [facility] Anion Gap 2(L) 3 - 11 LAB CHEMISTRY METHOD 11/11/2024 1:19 PM [facility] Glucose 88 70 - 100 mg/dL LAB CHEMISTRY METHOD 11/11/2024 1:19 PM [facility] BUN 18 5 - 25 mg/dL LAB CHEMISTRY METHOD 11/11/2024 1:19 PM [facility] Creatinine 0.64 0.50 - 1.10 mg/dL LAB CHEMISTRY METHOD 11/11/2024 1:19 PM [facility] eGFR 90 >=60 mL/min/1. 73m2 LAB CHEMISTRY METHOD 11/11/2024 1:19 PM [facility] Comment:Calculation based on the Chronic Kidney Disease Epidemiology Collaboration (CKD-EPI) equation refit without adjustment for race. BUN/Creatinine Ratio 28.1 LAB CHEMISTRY METHOD 11/11/2024 1:19 PM [facility] Calcium 9.1 8.5 - 10.5 mg/dL LAB CHEMISTRY METHOD 11/11/2024 1:19 PM [facility] AST (SGOT) 19 10 - 42 unit/L LAB CHEMISTRY METHOD 11/11/2024 1:19 PM [facility] ALT (SGPT) 20 10 - 60 unit/L LAB CHEMISTRY METHOD 11/11/2024 1:19 PM EDT [facility] Alkaline Phosphatase 92 42 - 121 unit/L LAB CHEMISTRY METHOD 11/11/2024 1:19 PM [facility] Total Protein 6.7 6.0 - 8.0 g/dL LAB CHEMISTRY METHOD 11/11/2024 1:19 PM [facility] Albumin 3.5 3.2 - 5.0 g/dL LAB CHEMISTRY METHOD 11/11/2024 1:19 PM [facility] Total Bilirubin 0.6 0.0 - 1.4 mg/dL LAB CHEMISTRY METHOD 11/11/2024 1:19 PM [facility] Blood Venous blood specimen / Unknown Venipuncture / Unknown 11/11/2024 9:55 AM EDT 11/11/2024 9:55 AM EDT Kirstin Mcgarry NP LAB BLOOD ORDERABLES Final Resu lt [facility] [address] [place] [address], * Falls Risk Assessment (10/31/2023) Falls Risk Assessment Abstracted Historical Provider HEALTH MAINTENANCE Final Result * Depression Screening (10/31/2023) Depression Screening Abstracted Historical Provider HEALTH MAINTENANCE Final Result * [facility] DEXA AXIAL SKELETON (07/10/2022 9:33 AM EST) Anatomical Region Laterality Modality Mammography 07/06/2022 10:3 4 AM EST Narrative 07/10/2022 9:33 AM EST [facility] Diagnostic Imaging Department [address] [place] [address] Patient: CONRAD WILSON /Age/Sex: 1945 77 - F Unit#: [id number] Location/Status: SPDIMAM/REG CLI [facility]em[facility] Ordering Physician: MARGO REZA MD Pank[facility] Dexa Axial Skeleton - 07/06/22 1243 HISTORY: The patient is a 77-year-old [...] probability of hip fracture of 9.9%. Code 36706 Dictating Physician: AIYANA BEASLEY MD Electronically Signed by: AIYANA BEASLEY MD Dic Date/Time: 07/10/22931 Sign date/Time: 07/10/22932 Procedure Note Aiyana Beasley MD - 08/31/2023 [facility] Diagnostic Imaging Department [address] [place] [address] Patient: CONRAD WILSON Kamla Grullon./Age/Sex: 1945 - 77 - F Unit#: [id number] Location/Status: [facility]emonic[facility] Ordering Physician: MARGO REZA MD Pankaj Dexa Axial Skeleton - 07/06/22 - 1243 [...] density of the femurs bilaterally is 0.779 [id number] is 77% of that of young normals [...] probability of hip fracture of 9.9%. Code 60319 Dictating Physician: AIYANA BEASLEY MD Electronically Signed by: AIYANA BEASLEY MD Dic Date/Time: 07/10/22931 Sign date/Time: 07/10/22932 Margo Reza MD IMG BI PROCEDURES Final Re sult from Last 3 Months or Most Recently Relevant to Health Maintenance Insurance MEDICARE [facility] Care Teams Technical Writer Relationship Specialty Start Date End Date Kirstin Mcgarry NP [address] [place], [place] [address] [address] PCP - General 07/27/22
== END 2025-04-15 10:05 | disposition home or self-care (01) ==
LOC: HO.HWS 09:40
PROVIDERS: PCP Nurse Practitioner Primary Care; Visit Provider Obstetrics & Gynecology
DX: R93.89 Abnormal findings on diagnostic imaging of other specified body structures (principal)
CPT/HCPCS: 99213

== ENCOUNTER → 2025-04-15 09:40 | Outpatient (BNVA) | payer MEDICARE, SELFPAY | PROVIDERS: PCP Nurse Practitioner Primary Care; Visit Provider Obstetrics & Gynecology | DX: R93.89 Abnormal findings on diagnostic imaging of other specified body structures (principal) | CPT/HCPCS: 99212 ==